=== PATIENT | female | born 1975 | race Caucasian/White ===

== ENCOUNTER 2018-02-27 06:17 | Day surgery (SDC) | payer OTHER ==
[~2018-02-27 06:17] MED LIST: BUSPIRONE HCL15 MG; FLAGYL375 MG; GAS-X125 M1 PO; IMODIUM A-D2 M2 PO; PAXIL40 MG; QUESTRAN PACKET4 GM PO; ULTRACET PO; XANAX0.25 MG; XANAX2 MG
== END 2018-02-27 11:40 | disposition home or self-care (01) ==
LOC: AMB-ENDOS 06:17
DX: K62.4 Stenosis of anus and rectum (principal)